=== PATIENT | female | born 1975 | race Caucasian/White ===

== ENCOUNTER 2017-06-26 17:27 | Emergency (ER) | payer OTHER ==
[~2017-06-26] VITALS: Ht 162.6 cm; Wt 100.5 kg
[2017-06-26 17:50] VITALS: Ht 162.6 cm; Wt 100.5 kg
[2017-06-26 21:31] VITALS: BP 126/77
== END 2017-06-26 21:31 | disposition home or self-care (01) ==
LOC: ED 17:27
DX: S86.111A Strain of other muscle(s) and tendon(s) of posterior muscle group at lower leg level, right leg, initial encounter (principal); I83.91 Asymptomatic varicose veins of right lower extremity; Z88.1 Allergy status to other antibiotic agents; X58.XXXA Exposure to other specified factors, initial encounter; Y93.89 Activity, other specified; Y92.89 Other specified places as the place of occurrence of the external cause; Y99.8 Other external cause status
CPT/HCPCS: Q0092